=== PATIENT | male | born 2000 | race Caucasian/White ===

== ENCOUNTER 2023-04-23 14:20 | Emergency (ER) | payer SELFPAY ==
[~2023-04-23] VITALS: Ht 172.7 cm; Wt 75.0 kg
[2023-04-23 14:36] VITALS: BP 151/79; RESP 16; O2SAT 100
[2023-04-23 14:37] VITALS: PULSE 124
[2023-04-23] MEDS ORDERED: RALTEGRAVIR 400 MG TABLET PO SCH (15:00)
[2023-04-23] MEDS ORDERED: TENOFOVIR 300MG TABLET PO ONE (15:00)
[2023-04-23] MEDS ORDERED: EMTR1TAB11 MT (15:02)
[2023-04-23] MEDS ORDERED: RALT400T MT (15:02)
[2023-04-26 05:11] LABS: CHLAMYDIA TRACHOMATIS NAA Negative (Negative); NEISSERIA GONORRHOEAE NAA Negative (Negative)
== END 2023-04-23 15:10 | disposition home or self-care (01) ==
LOC: ER 14:20
DX: F22 Delusional disorders (principal); Z59.00 Homelessness unspecified
CPT/HCPCS: 87491; 87591; 99281; 99283